=== PATIENT | male | born 1945 | race Caucasian/White ===

== ENCOUNTER 2016-05-17 20:24 | Emergency (ER) | payer MEDICARE, OTHER ==
[~2016-05-17] VITALS: Ht 182.9 cm; Wt 165.9 kg
[2016-05-17 20:26] VITALS: BP 143/85; PULSE 91; RESP 12; O2SAT 98
[2016-05-17 20:47] LABS: BASOPHILS % (AUTO) 0.9 % (0-3); EOSINOPHILS % (AUTO) 6.4 % (0-5); MONOCYTES % (AUTO) 14.4 % (4-12); Mean Corpuscular Hemoglobin 31.9 pg (27.0-35.0); Mean Corpuscular Volume 89.1 fL (81-100); NEUTROPHILS % (AUTO) 50.5 % (40-74); Platelet Count 191 bil/L (150-400)
--- NOTE | 2016-05-17 20:48 | ED.REPORT ---
HPI-General Illness Date of Service May 17, 2016 ED Provider: Anne YoungbloodO. A 70 year old male with a history of IDDM, BPH, COPD, and paroxysmal atrial fibrillation not on anticoagulants s/p pacemaker placement presents to the ED via EMS with dizziness described as "room-spinning" onset suddenly at 19:30, while resting after dinner. The patient also reports nausea, vomiting, constipation, generalized weakness, diaphoresis, clumsy speech, and reduced fine motor control. He denies shortness of breath, chest pain, or other symptoms. EMS found the patient with a BP of 160, a blood sugar of 220, and otherwise normal vital signs. Nursing Notes Stated Complaint: SWEATING, NAUSIA, WEAKNESS Chief Complaint: General Complaint Nursing Notes Reviewed: Yes Allergies: Coded Allergies: valsartan (Verified Adverse Reaction, Severe, Hallucinations, 05/17/16) General Time Seen by MD: 20:47 Chief Complaint Dizziness Hx Obtained From: Patient Arrived By: Walk-in Sudden in Onset?: Yes Onset Occurred: 1 - 4 hours ago Symptom Duration: Since onset Severity: Current: No pain currently Severity: Maximum: No pain Associated with: Reports: Nausea, Vomiting, Weakness, Denies: Chest pain Pertinent Negative: Relieved by nothing Context Related History: Reports COPD, Reports Diabetes mellitus Recent Healthcare: No recent doctor visit Past Medical History Past Medical History Notes: Dr. Benson Past Medical History Paroxysmal A fib IDDM BPH COPD Past Surgical History CPAP Pacemaker placement Smoking History Unknown if Ever Smoker Review of Systems + Clumsy speech and reduced fine motor control Full Review of Systems Constitutional: Reports: Weakness - generalized, Denies: Fever Respiratory: Denies: Shortness of breath Cardiovascular: Denies: Chest pain GI: Reports: Constipation, Nausea, Vomiting, Denies: Diarrhea Skin: Reports Diaphoresis Neurologic: Reports: Dizziness Complete sys rev & neg: except as marked. Physical Exam Vital Signs Vital Signs Date Time Temp Pulse Resp B/P Pulse Ox O2 Delivery O2 Flow Rate FiO2 05/18/16 01:20 80 16 142/84 97 Nasal Cannula 2 05/17/16 20:57 77 22 136/83 97 Nasal Cannula 2 05/17/16 20:26 36.1 91 12 143/85 98 Room Air Initial VS: Reviewed Head / Eyes: Atraumatic, Normocephalic ENT: Conjunctiva normal, No scleral icterus Neck: Supple, Full range of motion Abdomen / GI: Soft, Non-tender Skin: Warm, Dry, No cyanosis Psychiatric: Mood/affect normal, Behavior normal, Normal thought content General/Constitutional: Awake, Alert Appearance / Presentation: Positive: Obese Respiratory / Chest: Breath sounds = bilat, No respiratory distress Diminished Breath Sounds: Positive: Decreased bilateral Cardiovascular: Heart rate NL, Regular rhythm, Heart sounds NL Lower Ext Edema: Positive: Pitting (Bilateral) Neurologic: Oriented X3, Speech NL, No motor deficits, No sensory deficits Interpretation & Diagnostics CT ANGIOGRAM HEAD AND NECK: CONCLUSION: Head: No acute abnormality. Bilateral origin of the posterior cerebral arteries. Neck: Normal CT angiogram of the neck. Transmitted to ED by Radiologist Tristin Camargo M.D. at 05/18/2016 - 1:37:01 AM PDT Lab Results Interpretation Result Diagram: 05/17/16202705/17/162027 Test 05/17/16 20:28 White Blood Count 8.4th/mm3 (3.8-10.1) Red Blood Count 4.76mil/mm3 (4.40-5.80) Hemoglobin 15.2g/dL (13.8-17.2) Hematocrit 42.4% (41.0-50.0) Mean Corpuscular Volume 89.1fL (81-100) Mean Corpuscular Hemoglobin 31.9pg (27.0-35.0) Mean Corpuscular Hemoglobin Concent 35.8% (32.0-37.0) Red Cell Distribution Width 12.3% (12.3-15.4) Platelet Count 191bil/L (150-400) Neutrophils (%) (Auto) 50.5% (40-74) Lymphocytes (%) (Auto) 27.2% (14-46) Monocytes (%) (Auto) 14.4% (4-12) Eosinophils (%) (Auto) 6.4% (0-5) Basophils (%) (Auto) 0.9% (0-3) Sodium Level 136mEq/L (134-144) Potassium Level 4.5mEq/L (3.5-5.2) Chloride Level 96mEq/L (97-108) Carbon Dioxide Level 22mmol/L (18-29) Blood Urea Nitrogen 26mg/dL (8-27) Creatinine 1.60mg/dL (0.76-1.27) Estimat Glomerular Filtration Rate 46mL/min (>59) Glucose Level 231mg/dL (60-99) Calcium Level 9.8mg/dL (8.5-10.1) Magnesium Level 2.0mg/dL (1.6-2.6) Total Bilirubin 0.4mg/dL (0.0-1.2) Aspartate Amino Transf (AST/SGOT) 36U/L (0-50) Alanine Aminotransferase (ALT/SGPT) 29U/L (0-44) Alkaline Phosphatase 89U/L (25-160) Troponin T 0.010ug/L (0.0-0.011) Pro-B-Type Natriuretic Peptide 380.8pg/mL (0-376) Total Protein 7.9g/dL (6.4-8.4) Albumin 4.0g/dL (3.4-5.0) ECG Interpretation ECG Interpretation: Intermittent atrial fibrillation/flutter and V-paced complexes rate 85 LBBB Time: 20:30 Interpreted by: ED physician X-Ray Chest Interpretation Chest Xray Interpretation: IMPRESSION: 1. Cardiomegaly. 2. No definite acute cardiopulmonary disease. Dictated by: Farhan Adkins M.D. on 05/17/2016 at 21:52 View: Portable, 1 view Interpretation / Wet Read by: Interpret - Radiologist CT Head Interpretation IMPRESSION: 1. No acute intracranial hemorrhage or mass effect. 2. Small hypodensity in the left basal ganglia suggestive of a small lacunar infarct of indeterminate acuity. Recommend correlation with clinical history or further evaluation with MRI if indicated. 3. Mild chronic white matter small vessel ischemic changes. 4. Sinus mucosal disease with an air-fluid level in the right maxillary sinus suggesting acute sinusitis. Dictated by: Farhan Adkins M.D. on 05/17/2016 at 22:03 Study: Head CT no contrast Interpretation / Wet Read by: Interpret - Radiologist Re-Eval/Medical Decision Med Decision/Clinical Course Small hypodensity in the left basal ganglia suggestive of a subacute lacunar infarct observed on head CT. No acute thrombus visualized on head/neck CT angiogram. Consulted with [place] neurology who recommend he be transferred to [facility] in [place]. This gentleman is a high risk for this being a thromboembolic event. He is in atrial fibrillation and he is not anticoagulated. He will be transferred to the [facility] for further care and disposition. Source of Hx: Old records Time of Eval: 22:20 Patient Status: Condition improved Re-Evaluation/Progress Note: NIH score remains zero. Time of Eval: 23:23 Patient Status: Condition improved Re-Evaluation/Progress Note: Patient rechecked. Discussed CT results. Time of Eval: 23:37 Patient Status: Condition improved Re-Evaluation/Progress Note: Patient rechecked. Discussed consult with [facility] neurologist and plan for CT angio. Time of Eval: 01:11 Patient Status: Condition worsened Re-Evaluation/Progress Note: Patient rechecked. He is now actively vomiting. Time of Eval: 02:13 Patient Status: Condition improved Re-Evaluation/Progress Note: Patient is feeling much better. Discussed with patient CT, x-ray, and lab results, diagnosis, and plan for transfer to [facility]. Patient agrees with plan for care and all questions were addressed. Consultation #1: Consulted With: Neurology Requested Call at: 23:19 Call Returned at: 23:30 Syrup Filterer: Agrees with eval, Agrees with plan Note: Originally discussed patient's case with [facility] nursing staff and awaited call from neurologist. Discussed patient's case with [facility] neurologist. They recommend head and neck angio CT. If negative, transfer to [facility] in [place]. If not, transfer to acute care facility. Consultation #2: Consulted With: Neurology Call Returned at: 01:58 Syrup Filterer: Agrees with eval, Agrees with plan Note: Discussed patient's case with [place] neurologist, Dr. Samaniego. Attending physician, Dr. John, accepts transfer. 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 Additional Impressions: Vertigo Vomiting Vomiting type: unspecified Vomiting Intractability: non-intractable Nausea presence: with nausea Qualified Code: R11.2 - Nausea with vomiting, unspecified Paroxysmal a-fib Disposition: Transfer, [place] Receiving Hospital: [facility] Transfer Accepted: Yes Transfer Accepted at: 01:58 Spoke with: Attending physician Patient Status: Stable Patient Informed: Yes Discharge Condition All VS Reviewed: Yes Condition: Improved Referrals: [facility] (PCP) Scribe Attestation Portions of this note were transcribed by Keysha Kent. I, Dr. Velasquez, personally performed the history, physical exam, and medical decision-making; I reviewed and confirmed the accuracy of the information in the transcribed note. Signed by: Van Castillo, 05/18/2016, 02:55 copies to: [facility] Risk Factors NIH Stroke Scale Level of Consciousness: Alert and responsive (0) Ask Month & Age: Both questions right (0) Open/Close Eyes/Hand Basketball Coach: Performs both tasks (0) Horizontal EO Movements: None (0) Facial Palsy: Normal symmetry (0) Right Arm Motor Drift (10s): No drift 10 sec (0) Left Arm Motor Drift (10s): No drift 10 sec (0) Right Leg Motor Drift (5s): No drift 5 sec (0) Left Leg Motor Drift (5s): No drift 5 sec (0) Limb Ataxia FNF/Heel-Leone: No ataxia (0) Sensation (Arms/Legs/Face): No sensory loss (0) Language Aphasia: No aphasia, normal (0) Dysarthria: No dysarthria, normal (0) Extinction/Inattention: No exctinct/inattent (0) NIHSS Score: 0 Time NIHSS Performed: 21:00 Date NIHSS Performed: May 17, 2016 Justin Velasquez DO May 17, 2016 20:48 KEYSHA KENT May 17, 2016 21:15
[2016-05-17 20:57] VITALS: BP 136/83; PULSE 77; RESP 22; O2SAT 97
[2016-05-17 21:12] LABS: TROPONIN T 0.01 ug/L (0.0-0.011)
--- NOTE | 2016-05-17 21:58 | DRSVH ---
PROCEDURE: X-RAY CHEST ONE VIEW, PORTABLE ([id number]) INDICATIONS: weakness TECHNIQUE: One view of the chest was acquired. COMPARISON: [facility], , CHEST 1VW (PORTABLE), 04/02/2014, 17:20. FINDINGS: Surgical changes and devices: Right chest wall dual-lead pacemaker appears stable in position. Lungs and pleura: No pleural effusions or pneumothorax. Lungs are clear. Mediastinum: Mediastinal contours appear normal. Heart size is enlarged. Bones and chest wall: No suspicious bony lesions. Overlying soft tissues appear unremarkable. IMPRESSION: 1. Cardiomegaly. 2. No definite acute cardiopulmonary disease. Dictated by: Farhan Adkins M.D. on 05/17/2016 at 21:52 Approved by: Farhan Adkins M.D. on 05/17/2016 at 21:56
--- NOTE | 2016-05-17 22:08 | DRSVH ---
PROCEDURE: CT BRAIN WITHOUT CONTRAST ([id number]) INDICATIONS: vertigo, vomiting, ataxia TECHNIQUE: Noncontrast 4.5 mm thick angled axial sections acquired from the foramen magnum to the vertex, with c oronal reformats. COMPARISON: None. FINDINGS: Image quality: Excellent. CSF spaces: Basal cisterns are patent. No extra-axial fluid collections. Ventricles are normal in size and shape. Brain: No intracranial hemorrhage, mass, or mass effect. Schwartz-white matter interface is preserved. There is a small nonspecific focal hypodensity in the left basal ganglia suggestive of a small lacun ar infarct of indeterminate acuity. There are a few periventricular white matter hypodensities consi stent with mild chronic small vessel ischemic changes. Skull and face: Calvarium and visualized facial bones appear intact, without suspicious lesions. Sinuses: Visualized sinuses demonstrate mild mucosal thickening within the ethmoid, sphenoid, and ri ght maxillary sinuses with an air-fluid level in the right maxillary sinus. IMPRESSION: 1. No acute intracranial hemorrhage or mass effect. 2. Small hypodensity in the left basal ganglia suggestive of a small lacunar infarct of indeterminat e acuity. Recommend correlation with clinical history or further evaluation with MRI if indicated. 3. Mild chronic white matter small vessel ischemic changes. 4. Sinus mucosal disease with an air-fluid level in the right maxillary sinus suggesting acute sinus itis. Dictated by: Farhan Adkins M.D. on 05/17/2016 at 22:03 Approved by: Farhan Adkins M.D. on 05/17/2016 at 22:06
[2016-05-18] MEDS ORDERED: Ondansetron 2 mg/mL 2 mL Inj ONE (01:07)
[2016-05-18 01:20] VITALS: BP 142/84; PULSE 80; RESP 16; O2SAT 97
[2016-05-18] MEDS ORDERED: Ondansetron 2 mg/mL 2 mL Inj IVPUSH ONE (01:30)
[2016-05-18 03:58] VITALS: BP 148/92; PULSE 81; RESP 15; O2SAT 95
[2016-05-18 05:14] VITALS: BP 152/77; PULSE 83; RESP 13; O2SAT 95
--- NOTE | 2016-05-18 09:04 | DRSVH ---
PROCEDURE: CT ANGIO HEAD AND NECK (P) INDICATIONS: posterior circulation TIA, basal ganglia infarct TECHNIQUE: Pre-contrast 4.5 mm thick sections acquired from the foramen magnum to the vertex. After the adminis tration of intravenous contrast, 1 mm thick sections acquired from the aortic arch through the [place] of [place]. Post-contrast 4.5 mm thick sections then re-acquired from the foramen magnum to the vert ex. 3-dimensional auzovak-smjnyovgs-hysqlhvuxx (MIP) and/or volume rendering reformats were acquired of the central intracranial vasculature and neck separately. For radiation dose reduction, the foll owing was used: automated exposure control, adjustment of mA and/or kV according to patient size. COMPARISON: None. FINDINGS: Image quality: Excellent. BRAIN: CSF spaces: Ventricles are normal in size and shape. Basal cisterns are patent. No extra-axial flu id collections. Brain: No midline shift. No intracranial bleeds or masses. Schwartz-white matter interface appears int act. Skull and face: Calvarium and facial bones appear intact, without suspicious lesions. Orbits appear normal. Sinuses: Sinuses and mastoids are clear. HEAD CT ANGIOGRAPHY: Anterior circulation: Intracranial internal carotid arteries are normal in size and flow. The flow within the paired anterior cerebral arteries is normal and symmetric. The flow within the middle cer ebral arteries is normal and symmetric. The anterior communicating artery is seen. No aneurysms are seen. Posterior circulation: Visualized portions of the vertebral arteries demonstrate normal caliber, and join to form a normal appearing basilar artery. There are origins of the posterior several ar teries bilaterally. Flow within the posterior cerebral arteries is normal and symmetric. No aneurysm s are seen. NECK CT ANGIOGRAPHY: Carotid system: The great vessels demonstrate a conventional anatomy as they arise from the aortic a rc. The origins of the common carotid arteries appear patent. The common carotid arteries demonstr ate normal caliber and courses. The bifurcation regions are both widely patent with minor irregulari ty but no significant stenosis the. The internal carotid arteries demonstrate normal calibers and co urses. Posterior circulation: The origins of the vertebral arteries are suboptimally visualized due to remy facts but appear patent. The more superior extracranial portions of both vertebral arteries also dem onstrate normal courses and calibers. They join to form a normal appearing basilar artery. Soft tissues: Visualized neck soft tissues demonstrate no suspicious abnormalities. There is mucosa l thickening and an air-fluid level in the right maxillary sinus. There is a mucous retention cyst in the left sphenoid sinus. Bones: No suspicious bony lesions. Visualized cervical spine appears normally aligned. IMPRESSION: 1. Normal intracranial angiogram without significant stenosis or occlusion in anterior or posterior c irculations. 2. Minor irregularity at the carotid bifurcations bilaterally without hemodynamic significant stenosi s or occlusion. 3. Suboptimal visualization of the vertebral artery origins. The vertebral arteries appear patent eze aterally without significant stenosis or occlusion. 4. Paranasal sinus disease as described. No significant discrepancy with the belt molder radiology preliminary report. Please note sinus disea se not mentioned in the preliminary report. Dictated by: Trevor Tovar M.D. on 05/18/2016 at 8:49 Approved by: Trevor Tovar M.D. on 05/18/2016 at 9:03
== END 2016-05-18 04:50 ==
LOC: SED 20:24
DX: G45.0 Vertebro-basilar artery syndrome (principal); E10.59 Type 1 diabetes mellitus with other circulatory complications; I48.0 Paroxysmal atrial fibrillation; R11.2 Nausea with vomiting, unspecified; R42 Dizziness and giddiness; J44.9 Chronic obstructive pulmonary disease, unspecified; Z95.0 Presence of cardiac pacemaker; Z88.8 Allergy status to other drugs, medicaments and biological substances
CPT/HCPCS: 70450; 70496; 70498; 71010; 80053; 82948; 83735; 83880; 84484; 85025; 93005; 96374; 99285; J2405; Q9967